=== PATIENT | female | born 1960 | race Asian ===

== ENCOUNTER 2023-12-24 07:59 | Day surgery (SDC) | payer OTHER ==
[~2023-12-24] VITALS: Ht 160 cm; Wt 81.6 kg
[2023-12-24] MEDS ORDERED: fentaNYL CITRATE/PF 100 MCG/2 ML AMP ONE (08:07)
[2023-12-24] MEDS ORDERED: MIDAZOLAM HCL 5 MG/5 ML VIAL ONE (08:07)
[2023-12-24 09:44] VITALS: O2SAT 98
[2023-12-24 18:28] VITALS: BP_SYST 136; PULSE 58; RESP 11
== END 2023-12-24 12:25 | disposition home or self-care (01) ==
LOC: SDS 07:59 → SMU 08:02 → SDS 12:25
PROVIDERS: ATTEND Internal Medicine
DX: Z12.11 Encounter for screening for malignant neoplasm of colon (principal); K64.8 Other hemorrhoids; Z98.891 History of uterine scar from previous surgery
CPT/HCPCS: 45378; 99152; G0378; J2250; J3010

== ENCOUNTER 2024-04-05 07:27 | Day surgery (SDC) | payer OTHER ==
[~2024-04-05] VITALS: Ht 168 cm; Wt 77.1 kg
[2024-04-05] MEDS ORDERED: fentaNYL CITRATE/PF 100 MCG/2 ML AMP ONE (08:32)
[2024-04-05] MEDS ORDERED: MIDAZOLAM HCL 5 MG/5 ML VIAL ONE (08:32)
[2024-04-05 12:21] VITALS: O2SAT 99
[2024-04-05 16:47] VITALS: BP_SYST 123; PULSE 54; RESP 11
== END 2024-04-05 09:51 | disposition home or self-care (01) ==
LOC: SDS 07:27 → SMU 08:03 → SDS 09:51
PROVIDERS: ATTEND Internal Medicine
DX: Z09 Encounter for follow-up examination after completed treatment for conditions other than malignant neoplasm (principal); D12.3 Benign neoplasm of transverse colon; K64.8 Other hemorrhoids; Z79.899 Other long term (current) drug therapy
CPT/HCPCS: 45385; 88305; 99152; G0378; J2250; J3010